=== PATIENT | female | born 1985 | race African-American/Black ===

== ENCOUNTER 2019-09-10 07:29 | Emergency (ER) | payer OTHER ==
[~2019-09-10] VITALS: Ht 170.2 cm; Wt 108.8 kg
[2019-09-10] MEDS ORDERED: DIAZEPAM 5 MG TABLET ONE (08:12)
[2019-09-10 08:13] LABS: BASOPHILS # (AUTO) 0.04 x10^3/uL (0-0.1); BASOPHILS % (AUTO) 0 % (0-1); EOSINOPHILS # (AUTO) 0.03 x10^3/uL (0-0.4); EOSINOPHILS % (AUTO) 0 % (1-7); LYMPHOCYTES # (AUTO) 2.01 x10^3/uL (1-3.4); LYMPHOCYTES % (AUTO) 19 % (22-44); MD NO; MEAN CORPUSCULAR HEMOGLOBIN 26.9 pg (27.0-34.8); MEAN CORPUSCULAR HGB CONC 32.5 g/dL (32.4-35.8); MEAN CORPUSCULAR VOLUME 82.8 fL (80-100); MONOCYTES # (AUTO) 0.45 x10^3/uL (0.2-0.8); MONOCYTES % (AUTO) 4 % (2-9); NEUTROPHILS # (AUTO) 8.01 x10^3/uL (1.8-6.8); NEUTROPHILS % (AUTO) 76 % (42-75); PLATELET COUNT 244 x10^3/uL (130-400); RED BLOOD COUNT 4.63 x10^6/uL (3.82-5.3)
[2019-09-10] MEDS ORDERED: KETOROLAC 30 MG/1 ML ONE (08:13)
[2019-09-10 08:25] LABS: ALBUMIN 3.8 g/dL (3.4-5.0); ANION GAP 11 mmol/L (5-15); CHLORIDE 108 mmol/L (98-107); CREATININE 0.81 mg/dL (0.55-1.02)
[2019-09-10 08:29] LABS: TROPONIN I < 0.015 ng/mL (0.000-0.045)
--- NOTE | 2019-09-10 08:40 | NUR ---
PT TOOK BP MULTIPLE TIMES THROUGH THE NIGHT WHILE AT WORK BECAUSE SHE WAS NOT FEELING RIGHT AND EYE WAS TWITCHING. ADDITIONALLY UPPER BACK PAIN THAT SHE SOMETIMES GETS. MEDICATED NOTED ON MAY AND TO RE-EVALUATE
[2019-09-10] MEDS ORDERED: KETOROLAC 30 MG/1 ML IM ONE (09:00)
[2019-09-10] MEDS ORDERED: DIAZEPAM 5 MG TABLET PO ONE (09:00)
[2019-09-10 09:20] VITALS: BP 142/87
--- NOTE | 2019-09-10 09:20 | NUR ---
PA RE-EVALUATING PT
== END 2019-09-10 09:44 | disposition home or self-care (01) ==
LOC: ED 07:51
DX: S29.012A Strain of muscle and tendon of back wall of thorax, initial encounter (principal); I51.7 Cardiomegaly; R10.9 Unspecified abdominal pain; X58.XXXA Exposure to other specified factors, initial encounter; Y93.89 Activity, other specified; Y92.89 Other specified places as the place of occurrence of the external cause; Y99.8 Other external cause status
CPT/HCPCS: 36415; 71045; 80048; 82040; 84484; 85025; 93005; 96372; 99285; J1885